=== PATIENT | male | born 1960 | race Caucasian/White ===

== ENCOUNTER → 2016-10-16 | Outpatient (CLI) | payer OTHER ==
--- NOTE | 2016-10-19 16:43 | MR ---
EXAM DATE: 10/16/16 PATIENT'S AGE: 56 Patient: OSCAR CALLE Facility: [facility] Site . Site : [id number] Study: MRI-Spine Cervical [id number]/2017 6:48:01 PM Ordering Physician: Jennifer Orozco Final Report: Indication: Headache. Neck pain. Comparison: None. Technique: Sagittal T1, T2, and STIR sequences. Axial T2/gradient sequences. Findings: Straightening of the normal cervical lordosis which may be due to a combination postoperative change in patient positioning. Otherwise, normal vertebral body facet alignment. No fractures. No vertebral body loss of height. No spondylosis is. No ligamentous injury. Normal marrow signal. Normal cord signal. No intradural mass or lesion. Postoperative changes of anterior discectomy and fusion C5 through C7. C2-3: No spinal canal or neural foraminal narrowing. C3-4: Posterior disk bulge or disk osteophyte complex. Mild narrowing of spinal canal. Uncovertebral facet joint hypertrophy results in mild narrowing of the bilateral neural foramina. C4-5: Advanced disc degeneration with loss of disc height. Posterior disc bulge or disk osteophyte complex. Effacement of the ventral thecal sac and flattening of the cord. Moderate narrowing of spinal canal. Moderate bilateral neural foraminal narrowing with possible impingement of the C5 nerve roots. C5-6: No spinal canal or neural foraminal narrowing. C6-7: No spinal canal or neural foraminal narrowing. C7-T1: Disc degeneration with posterior disc bulge or disk osteophyte complex. Mild narrowing of spinal canal. Uncovertebral facet joint hypertrophy results in mild narrowing of the bilateral neural foramina. No spinal canal or neural foraminal narrowing in the visualized upper thoracic spine. Impression: 1. Straightening of the normal cervical lordosis. Otherwise, normal alignment. No fractures. 2. Normal cord signal 3. Postoperative changes anterior discectomy and fusion C5-C7 4. At C4-5, advanced disk degeneration. Moderate narrowing of the spinal canal and bilateral neural foramina. Possible impingement of the C5 nerve roots 5. At C7-T1, mild narrowing of the spinal canal and bilateral neural foramina Dictated by Bi Reinoso MD @ Oct 19 2016 2:25PM Signed by: Bi Reinoso MD @10/19/2016 2:29:32 PM (Electronic Signature) Report Signed by Proxy and Original Signed Document filed in the Medical Record. MTDElizabeth
== END ==
LOC: MW.MRI 17:44
PROVIDERS: ATTEND Psychiatry & Neurology Neuromuscular Medicine
DX: R51 Headache (principal); M54.2 Cervicalgia; G89.29 Other chronic pain; M50.321 Other cervical disc degeneration at C4-C5 level; M48.03 Spinal stenosis, cervicothoracic region; Z98.1 Arthrodesis status
CPT/HCPCS: 72141; 72141-26

== ENCOUNTER 2017-02-25 13:08 | Observation (INO) | payer BC ==
--- NOTE | 2017-02-25 13:15 | EDM.PDOC ---
ED HPI GENERAL MEDICAL PROBLEM - General Stated Complaint: CHEST PAIN Time Seen by Provider: 02/25/17 13:14 - History of Present Illness INITIAL COMMENTS - FREE TEXT/NARRATIVE: HISTORY AND PHYSICAL: History of present illness: Patient's 56-year-old white male presents with concern of chest pain he describes as a tightness and some mild diaphoresis he's had no shortness of breath nausea vomiting or palpitations his last approximately 20 minutes and remains present on arrival to history of stroke or SC he does have history of hypercholesterolemia. Review of systems: As per history of present illness and below otherwise all systems reviewed and negative. Past medical history: As per history of present illness and as reviewed below otherwise noncontributory. Surgical history: As per history of present illness and as reviewed below otherwise noncontributory. Social history: No reported history of drug or alcohol abuse. Family history: As per history of present illness and as reviewed below otherwise noncontributory. Physical exam: HEENT: Atraumatic, normocephalic, pupils reactive, negative for conjunctival pallor or scleral icterus, mucous membranes moist, throat clear, neck supple, nontender, trachea midline. Lungs: Clear to auscultation, breath sounds equal bilaterally, chest nontender. Heart: S1S2, regular, negative for clicks, rubs, or JVD. Abdomen: Soft, nondistended, nontender. Negative for masses or hepatosplenomegaly. Negative for costovertebral tenderness. Pelvis: Stable nontender. Genitourinary: Deferred. Rectal: Deferred. Extremities: Atraumatic, negative for cords or calf pain. Neurovascular unremarkable. Neuro: Awake, alert, oriented. Cranial nerves II through XII unremarkable. Cerebellum unremarkable. Motor and sensory unremarkable throughout. Exam nonfocal. Diagnostics: CBC CMP troponin PT/INR chest x-ray EKG Therapeutics: IV O2 monitor nitroglycerin aspirin morphine when necessary Impression: #1 chest pain Definitive disposition and diagnosis as appropriate pending reevaluation and review of above. - Related Data Allergies Allergy/AdvReac Type Severity Reaction Status Date / Time No Known Allergies Allergy Verified 02/25/17 13:16 Home Meds: Home Meds . [No Known Home Meds] 02/25/17 [History] Social & Family History - Tobacco Use Years of Tobacco use: 30 Packs/Tins Daily: 1 Used Tobacco, but Quit: No Second Hand Smoke Exposure: Yes - Recreational Drug Use Recreational Drug Use: No ED ROS GENERAL - Review of Systems Review Of Systems: ROS reveals no pertinent complaints other than HPI. ED EXAM, GENERAL - Physical Exam Exam: See Below (See dictation) Course - Vital Signs Last Recorded V/S: Last Vital Signs Temp 36.5 C 02/25/17 13:11 Pulse 73 02/25/17 13:42 Resp 18 02/25/17 13:42 BP 132/88 02/25/17 13:42 Pulse Ox 94 L 02/25/17 13:42 - Orders/Labs/Meds Orders: Active Orders 24 hr Category Date Time Status Patient Status [ADT] Stat ADT 02/25/17 14:20 Ordered Cardiac Monitoring [RC] . DIRECTED Care 02/25/17 13:16 Active EKG Documentation Completion [RC] STAT Care 02/25/17 13:16 Active EKG Documentation Completion [RC] STAT Care 02/25/17 13:16 Active Oxygen Therapy, ED [RC] ASDIRECTED Care 02/25/17 13:16 Active Chest 1V Frontal [CR] Stat Exams 02/25/17 13:16 Taken Sodium Chloride 0.9% [Normal Saline] 1,000 ml Med 02/25/17 13:30 Active IV STAT Sodium Chloride 0.9% [Saline Flush] Med 02/25/17 13:16 Active 10 ml FLUSH ASDIRECTED PRN Sodium Chloride 0.9% [Saline Flush] Med 02/25/17 13:16 Active 2.5 ml FLUSH ASDIRECTED PRN Saline Lock Insert [OM.PC] Stat Oth 02/25/17 13:16 Ordered Medication Orders Sodium Chloride (Normal Saline) 1,000 mls @ 125 mls/hr IV STAT TITO Last Admin: 02/25/17 13:48 Dose: 125 mls/hr Sodium Chloride (Saline Flush) 10 ml FLUSH ASDIRECTED PRN PRN Reason: Keep Vein Open Last Admin: 02/25/17 13:56 Dose: 10 ml Sodium Chloride (Saline Flush) 2.5 ml FLUSH ASDIRECTED PRN PRN Reason: Keep Vein Open Last Admin: 02/25/17 13:57 Dose: 2.5 ml Labs: Laboratory Tests 02/25/17 02/25/17 02/25/17 Range/Units 13:23 13:23 13:23 WBC 4.87 (4.0-11.0) K/uL RBC 5.40 (4.50-5.90) M/uL Hgb 16.2 (13.0-17.0) g/dL Hct 46.8 (38.0-50.0) % MCV 86.7 (80.0-98.0) fL MCH 30.0 (27.0-32.0) pg MCHC 34.6 (31.0-37.0) g/dL RDW Std Deviation 40.7 (28.0-62.0) fl RDW Coeff of Eulalia 13 (11.0-15.0) % Plt Count 198 (150-400) K/uL MPV 10.50 (7.40-12.00) fL Neut % (Auto) 61.2 (48.0-80.0) % Lymph % (Auto) 26.3 (16.0-40.0) % [place] % (Auto) 10.9 (0.0-15.0) % Eos % (Auto) 1.2 (0.0-7.0) % Baso % (Auto) 0.4 (0.0-1.5) % Neut # (Auto) 3.0 (1.4-5.7) K/uL Lymph # (Auto) 1.3 (0.6-2.4) K/uL [place] # (Auto) 0.5 (0.0-0.8) K/uL Eos # (Auto) 0.1 (0.0-0.7) K/uL Baso # (Auto) 0.0 (0.0-0.1) K/uL Nucleated RBC % 0.0 /100WBC Nucleated RBCs # 0 K/uL INR 0.99 (0.86-1.11) D-Dimer, Quantitative (0.0-0.52) mg/LFEU Sodium 140 (136-146) mmol/L Potassium 4.0 (3.5-5.1) mmol/L Chloride 105 (98-110) mmol/L Carbon Dioxide 28 (21-31) mmol/L BUN 14 (6.0-23.0) mg/dL Creatinine 1.0 (0.6-1.5) mg/dL Est Cr Clr Drug Dosing 95.44 mL/min Estimated GFR (MDRD) > 60.0 ml/min Glucose 122 H (60-110) mg/dL Calcium 10.3 (8.8-10.8) mg/dL Total Bilirubin 0.4 (0.1-1.5) mg/dL AST 21 (5-40) IU/L ALT 47 (8-54) IU/L Alkaline Phosphatase 106 (40-150) Troponin I (0.0-0.29) NG/ML Total Protein 7.5 (6.0-8.0) g/dL Albumin 4.4 (3.5-5.0) g/dL Globulin 3.1 (2.0-3.5) g/dL Albumin/Globulin Ratio 1.4 (1.3-2.8) 02/25/17 02/25/17 Range/Units 13:23 13:29 WBC (4.0-11.0) K/uL RBC (4.50-5.90) M/uL Hgb (13.0-17.0) g/dL Hct (38.0-50.0) % MCV (80.0-98.0) fL MCH (27.0-32.0) pg MCHC (31.0-37.0) g/dL RDW Std Deviation (28.0-62.0) fl RDW Coeff of Eulalia (11.0-15.0) % Plt Count (150-400) K/uL MPV (7.40-12.00) fL Neut % (Auto) (48.0-80.0) % Lymph % (Auto) (16.0-40.0) % [place] % (Auto) (0.0-15.0) % Eos % (Auto) (0.0-7.0) % Baso % (Auto) (0.0-1.5) % Neut # (Auto) (1.4-5.7) K/uL Lymph # (Auto) (0.6-2.4) K/uL [place] # (Auto) (0.0-0.8) K/uL Eos # (Auto) (0.0-0.7) K/uL Baso # (Auto) (0.0-0.1) K/uL Nucleated RBC % /100WBC Nucleated RBCs # K/uL INR (0.86-1.11) D-Dimer, Quantitative 0.19 (0.0-0.52) mg/LFEU Sodium (136-146) mmol/L Potassium (3.5-5.1) mmol/L Chloride (98-110) mmol/L Carbon Dioxide (21-31) mmol/L BUN (6.0-23.0) mg/dL Creatinine (0.6-1.5) mg/dL Est Cr Clr Drug Dosing mL/min Estimated GFR (MDRD) ml/min Glucose (60-110) mg/dL Calcium (8.8-10.8) mg/dL Total Bilirubin (0.1-1.5) mg/dL AST (5-40) IU/L ALT (8-54) IU/L Alkaline Phosphatase (40-150) Troponin I < 0.10 (0.0-0.29) NG/ML Total Protein (6.0-8.0) g/dL Albumin (3.5-5.0) g/dL Globulin (2.0-3.5) g/dL Albumin/Globulin Ratio (1.3-2.8) Meds: Medications Generic Name Dose Route Start Last Admin Trade Name Freq PRN Reason Stop Dose Admin Sodium Chloride 1,000 mls @ 125 mls/hr 02/25/17 13:30 02/25/17 13:48 Normal Saline IV 125 mls/hr STAT TITO Administration Sodium Chloride 10 ml 02/25/17 13:16 02/25/17 13:56 Saline Flush FLUSH 10 ml ASDIRECTED PRN Administration Keep Vein Open Sodium Chloride 2.5 ml 02/25/17 13:16 02/25/17 13:57 Saline Flush FLUSH 2.5 ml ASDIRECTED PRN Administration Keep Vein Open Discontinued Medications Generic Name Dose Route Start Last Admin Trade Name Freq PRN Reason Stop Dose Admin Aspirin 324 mg 02/25/17 13:17 02/25/17 13:33 Aspirin PO 02/25/17 13:18 324 mg ONETIME ONE Administration Enoxaparin Sodium 100 mg 02/25/17 13:45 02/25/17 13:54 Lovenox SUBCUT 02/25/17 13:46 100 mg ONETIME ONE Administration Morphine Sulfate 2 mg 02/25/17 13:17 02/25/17 13:34 Morphine IVPUSH 02/25/17 13:18 2 mg ONETIME ONE Administration Nitroglycerin 0.4 mg 02/25/17 13:17 02/25/17 13:36 Nitrostat SL 02/25/17 13:28 0.4 mg Q5M PRN Administration Chest Pain Ondansetron HCl 4 mg 02/25/17 13:17 02/25/17 13:34 Zofran IVPUSH 02/25/17 13:18 4 mg ONETIME ONE Administration Departure - Departure Time of Disposition: 14:24 Disposition: Refer to Observation Condition: Good Clinical Impression: Chest pain - Discharge Information - My Orders Last 24 Hours: My Active Orders 02/25/17 13:16 Cardiac Monitoring [RC] . DIRECTED EKG Documentation Completion [RC] STAT EKG Documentation Completion [RC] STAT Oxygen Therapy, ED [RC] ASDIRECTED Chest 1V Frontal [CR] Stat Sodium Chloride 0.9% [Saline Flush] 10 ml FLUSH ASDIRECTED PRN Sodium Chloride 0.9% [Saline Flush] 2.5 ml FLUSH ASDIRECTED PRN Saline Lock Insert [OM.PC] Stat 02/25/17 13:30 Sodium Chloride 0.9% [Normal Saline] 1,000 ml IV STAT 02/25/17 14:20 Patient Status [ADT] Stat - Assessment/Plan Last 24 Hours: My Active Orders 02/25/17 13:16 Cardiac Monitoring [RC] . DIRECTED EKG Documentation Completion [RC] STAT EKG Documentation Completion [RC] STAT Oxygen Therapy, ED [RC] ASDIRECTED Chest 1V Frontal [CR] Stat Sodium Chloride 0.9% [Saline Flush] 10 ml FLUSH ASDIRECTED PRN Sodium Chloride 0.9% [Saline Flush] 2.5 ml FLUSH ASDIRECTED PRN Saline Lock Insert [OM.PC] Stat 02/25/17 13:30 Sodium Chloride 0.9% [Normal Saline] 1,000 ml IV STAT 02/25/17 14:20 Patient Status [ADT] Stat
[2017-02-25] MEDS ORDERED: Sodium Chloride 0.9% 10 ML Syringe FLUSH PRN (13:16)
[2017-02-25] MEDS ORDERED: Sodium Chloride 0.9% 2.5 ML Syringe FLUSH PRN (13:16)
[2017-02-25] MEDS ORDERED: Morphine 2 MG/ML Syringe IVPUSH ONE (13:17)
[2017-02-25] MEDS ORDERED: Aspirin 81 MG Tab.Chew PO ONE (13:17)
[2017-02-25] MEDS ORDERED: Ondansetron 4 MG/2 ML SDV IVPUSH ONE (13:17)
[2017-02-25] MEDS: Nitroglycerin 0.4 MG Tab.SL SL PRN ×3 (13:26→13:36)
[2017-02-25] MEDS ORDERED: Sodium Chloride 0.9% 1,000 ML IV SCH (13:30)
[2017-02-25] MEDS ORDERED: Enoxaparin 100 MG/1 ML Syringe SUBCUT ONE (13:45)
[2017-02-25 13:58] LABS: CHLORIDE,CL 105 mmol/L (98-110); SODIUM,NA 140 mmol/L (136-146)
[2017-02-25] MEDS ORDERED: Temazepam 15 MG Cap PO PRN (15:53)
[2017-02-25] MEDS ORDERED: Morphine 4 MG/ML Syringe IVPUSH PRN (15:53)
[2017-02-25] MEDS ORDERED: Acetaminophen 325 MG Tab PO PRN (15:53)
[2017-02-25] MEDS ORDERED: Bisacodyl 5 MG Tab PO PRN (15:53)
--- NOTE | 2017-02-25 16:01 | PCM.HP ---
H&P History of Present Illness - General Date of Service: 02/25/17 Admit Problem/Dx: Admission Diagnosis/Problem Admission Diagnosis/Problem Chest pain - History of Present Illness Initial Comments - Free Text/Narative: He presented to the ED with complaint of left sided chest pain that was somewhat pleuritic in nature. It lasted over 1-2 hours. He thinks that it was similar to pain that has been attributed to acid reflux in the past. His pain is now resolved. Left Chest Pain Score (Numeric/FACES): 5 - Related Data Allergies/Adverse Reactions: Allergies Allergy/AdvReac Type Severity Reaction Status Date / Time No Known Allergies Allergy Verified 02/25/17 13:16 Home Medications: Home Meds . [No Known Home Meds] 02/25/17 [History] Past Medical History Cardiovascular History: Reports: High Cholesterol. Denies: Afib, Aneurysm, Bypass, Heart Failure, Hypertension, AL, Pulmonary Hypertension, PVD Respiratory History: Denies: COPD Gastrointestinal History: Reports: GERD. Denies: Cirrhosis Genitourinary History: Denies: Acute Renal Failure, Chronic Renal Insuffiency Neurological History: Denies: CVA Endocrine/Metabolic History: Denies: Ponce's Disease, Diabetes, Type I, Diabetes, Type II Hematologic History: Denies: Anticoagulation Therapy, Bleeding Disorder Immunologic History: Denies: AIDS, HIV, Immunosuppression, Solid Organ Transplant - Infectious Disease History Infectious Disease History: Reports: Chicken Pox - Past Surgical History Musculoskeletal Surgical History: Reports: Other (See Below) Other Musculoskeletal Surgeries/Procedures:: right arm tendon rupture repair Social & Family History - Family History Family Medical History: Noncontributory - Tobacco Use Smoking Status *Q: Former Smoker Years of Tobacco use: 30 Packs/Tins Daily: 1 Used Tobacco, but Quit: Yes Month Tobacco Last Used: May 2016 Second Hand Smoke Exposure: No - Caffeine Use Caffeine Use: Reports: Coffee, Soda, Tea - Recreational Drug Use Recreational Drug Use: No H&P Review of Systems - Review of Systems: Review Of Systems: See Below General: Denies: Fever, Chills Pulmonary: Denies: Shortness of Breath, Wheezing, Cough, Sputum, Hemoptysis Cardiovascular: Reports: Chest Pain Gastrointestinal: Denies: Black Stool, Bloody Stool, Hematemesis, Hematochezia, Vomiting Genitourinary: Denies: Hematuria Exam - Exam Exam: See Below - Vital Signs Vital Signs: Last Vital Signs Temp 97.7 F 02/25/17 13:11 Pulse 59 L 02/25/17 14:37 Resp 18 02/25/17 14:37 BP 127/86 02/25/17 14:37 Pulse Ox 95 02/25/17 14:37 Weight: 105.6 kg - Exam General: Alert, Oriented HEENT: EOMI Neck: Supple, Trachea Midline Lungs: Clear to Auscultation, Normal Respiratory Effort Cardiovascular: Regular Rate, Regular Rhythm GI/Abdominal Exam: Normal Bowel Sounds, Soft, Non-Tender (Male) Exam: Deferred Rectal (Males) Exam: Deferred Extremities: No Pedal Edema Neurological: Cranial Nerves Intact, Normal Speech Neuro Extensive - Mental Status: Alert, Oriented x3 Neuro Extensive - Motor, Sensory, Reflexes: CN II-XII Intact. No: Facial palsy (L), Facial Palsy (R), Hemeplagia (R), Hemeplagia (L) Psychiatric: Alert, Normal Mood. No: Depressed, Agitated, Hallucinations - Patient Data Result Diagrams: 02/25/17 13:23 02/25/17 13:23 *Q Meaningful Use (ADM) - VTE *Q VTE Criteria *Q: - Stroke *Q Stroke Criteria *Q: - AMI *Q AMI Criteria *Q: - Problem List (1) Chest pain SNOMED Code(s): 49037908 ICD Code: R07.9 - CHEST PAIN, UNSPECIFIED Status: Acute Current Visit: Yes Problem List Initiated/Reviewed/Updated: Yes Orders Last 24hrs: Active Orders 24 hr Category Date Time Status Oxygen Therapy [RC] PRN Care 02/25/17 15:53 Active VTE/DVT Education [RC] PER UNIT ROUTINE Care 02/25/17 15:53 Active Vital Signs [RC] Q4H Care 02/25/17 15:53 Active Regular Diet [DIET] Diet 02/25/17 Dinner Active TROPONIN I [CHEM] Q6H Lab 02/25/17 21:00 Ordered TROPONIN I [CHEM] Q6H Lab 02/26/17 03:00 Ordered Acetaminophen [Tylenol] Med 02/25/17 15:53 Ordered 650 mg PO Q4H PRN Bisacodyl [Dulcolax] Med 02/25/17 15:53 Ordered 5 mg PO DAILY PRN Morphine Med 02/25/17 15:53 Ordered 4 mg IVPUSH Q2H PRN Pantoprazole [ProTONIX] Med 02/25/17 17:00 Ordered 40 mg PO BIDAC Temazepam [Restoril] Med 02/25/17 15:53 Ordered 15 mg PO BEDTIME PRN Resuscitation Status Routine Resus Stat 02/25/17 15:53 Ordered Medication Orders Sodium Chloride (Normal Saline) 1,000 mls @ 125 mls/hr IV STAT TITO Last Admin: 02/25/17 13:48 Dose: 125 mls/hr Sodium Chloride (Saline Flush) 10 ml FLUSH ASDIRECTED PRN PRN Reason: Keep Vein Open Last Admin: 02/25/17 13:56 Dose: 10 ml Sodium Chloride (Saline Flush) 2.5 ml FLUSH ASDIRECTED PRN PRN Reason: Keep Vein Open Last Admin: 02/25/17 13:57 Dose: 2.5 ml Assessment/Plan Comment:: EKG : sinus rhythm with first degree AVB and without changes suggestive of ischemia CXR : normal will observe; protonix; serial troponins. Carlos Steve MD
[2017-02-25] MEDS: Pantoprazole 40 MG Tab.CR PO SCH (17:15)
[2017-02-26] MEDS: Pantoprazole 40 MG Tab.CR PO SCH (06:51)
[2017-02-26 10:27] VITALS: BP 128/89
--- NOTE | 2017-02-26 15:46 | CR ---
EXAM DATE: 02/25/17 PATIENT'S AGE: 56 Patient: OSCAR CALLE Facility: [place], [place] Site . Site : 1960 Study: XRay Chest [id number]/20/2017 1:51:42 PM Ordering Physician: Brian Herrera Final Report: Technique: Portable AP chest. INDICATIONS: Pain and shortness of breath. Comparison: 01/22/2014. Findings: The lungs are clear. Normal heart size and pulmonary vascularity. No effusion. No pneumothorax. Impression: No acute chest findings. Dictated by Thee Downs MD @ Feb 25 2017 2:09PM (Electronic Signature) Report Signed by Proxy. NORTHWELL HEALTHElizabeth
--- NOTE | 2017-02-26 17:15 | PCM.DCSUM1 ---
Discharge Summary - Hospital Course HPI Initial Comments: Discharge Summary Date of admission: 02/25/2017 Date of discharge: 02/26/2017 Admitting diagnosis: #1. Acute chest pain rule out ACS #2. Possible gastroesophageal reflux disease #3. #4. #5. Discharge diagnoses: #1. Acute chest pain ACS ruled out most likely etiology gastroesophageal reflux disease #2. History of gastroesophageal reflux disease #3. #4. #5. Consultations: None Procedures: None Hospitalization course: Patient was admitted to observation secondary to acute chest pain. Patient's troponins were drawn 3. Troponins 3 were negative patient. Patient since admission did not have any further exacerbations of his chest pain. Patient's laboratory data was all within normal limits. H he did not have any nausea, vomiting, diarrhea, constipation, chest pain, shortness of breath, dyspnea, or any other systemic findings including fevers. Patient was stable and wanted to go home. Patient was told to follow-up with his primary care physician. Patient was also given a prescription for outpatient cardiac stress test to be done. Disposition on discharge: Home Condition on discharge: Stable, vital signs normal, no nausea, diarrhea, constipation, chest pain, shortness of breath nor any elevation of troponins. Discharge medications: Continuation of home medication, as well as a prescription for Pepcid as well as sublingual nitroglycerin. Follow-up instructions: Primary care physician as well as outpatient cardiac stress test - Discharge Data Discharge Date: 02/26/17 Discharge Disposition: Home, Self-Care 01 Condition: Stable - Discharge Diagnosis/Problem(s) (1) Chest pain SNOMED Code(s): 12702059 ICD Code: R07.9 - CHEST PAIN, UNSPECIFIED Status: Acute - Patient Instructions Diet: Heart Healthy Diet Activity: As Tolerated Driving: May Drive Today Showering/Bathing: May Shower Notify Provider of: Fever, Increased Pain, Swelling and Redness, Drainage, Nausea and/or Vomiting - Discharge Plan Prescriptions/Med Rec: Famotidine [Pepcid] 20 mg PO BID #60 tablet Nitroglycerin 0.4 mg SL 5XDAY PRN #60 tab.subl PRN Reason: Chest Pain Home Medications: Home Meds Famotidine [Pepcid] 20 mg PO BID #60 tablet 02/26/17 [Rx] Nitroglycerin 0.4 mg SL 5XDAY PRN #60 tab.subl 02/26/17 [Rx] Patient Handouts: Famotidine tablets or gelcaps, Chest Wall Pain, [id number] , Nitroglycerin sustained-release tablets or capsules - Discharge Summary/Plan Comment DC Time >30 min.: No - Patient Data Vitals - Most Recent: Last Vital Signs Temp 36.6 C 02/26/17 09:00 Pulse 60 02/26/17 09:00 Resp 12 02/26/17 09:00 BP 128/89 02/26/17 09:00 Pulse Ox 95 02/26/17 09:00 Weight - Most Recent: 105.6 kg I&O - Last 24 hours: Intake & Output 02/26/17 02/26/17 02/26/17 06:59 14:59 22:59 Intake Total 360 Output Total 1020 Balance -660 Lab Results - Last 24 hrs: Laboratory Results - last 24 hr 02/25/17 02/26/17 Range/Units 19:20 01:33 Troponin I < 0.10 < 0.10 (0.0-0.29) NG/ML Med Orders - Current: Current Medications Discontinued Medications Acetaminophen (Tylenol) 650 mg PO Q4H PRN PRN Reason: Pain (Mild 1-3)/fever Aspirin (Aspirin) 324 mg PO ONETIME ONE Stop: 02/25/17 13:18 Last Admin: 02/25/17 13:33 Dose: 324 mg Bisacodyl (Dulcolax) 5 mg PO DAILY PRN PRN Reason: Constipation Enoxaparin Sodium (Lovenox) 100 mg SUBCUT ONETIME ONE Stop: 02/25/17 13:46 Last Admin: 02/25/17 13:54 Dose: 100 mg Sodium Chloride (Normal Saline) 1,000 mls @ 125 mls/hr IV STAT TITO Last Admin: 02/25/17 13:48 Dose: 125 mls/hr Morphine Sulfate (Morphine) 2 mg IVPUSH ONETIME ONE Stop: 02/25/17 13:18 Last Admin: 02/25/17 13:34 Dose: 2 mg Morphine Sulfate (Morphine) 4 mg IVPUSH Q2H PRN PRN Reason: Pain (severe 7-10) Stop: 02/26/17 15:53 Nitroglycerin (Nitrostat) 0.4 mg SL Q5M PRN PRN Reason: Chest Pain Stop: 02/25/17 13:28 Last Admin: 02/25/17 13:36 Dose: 0.4 mg Ondansetron HCl (Zofran) 4 mg IVPUSH ONETIME ONE Stop: 02/25/17 13:18 Last Admin: 02/25/17 13:34 Dose: 4 mg Pantoprazole Sodium (Protonix) 40 mg PO BIDAC TITO Last Admin: 02/26/17 06:51 Dose: 40 mg Sodium Chloride (Saline Flush) 10 ml FLUSH ASDIRECTED PRN PRN Reason: Keep Vein Open Last Admin: 02/25/17 13:56 Dose: 10 ml Sodium Chloride (Saline Flush) 2.5 ml FLUSH ASDIRECTED PRN PRN Reason: Keep Vein Open Last Admin: 02/25/17 13:57 Dose: 2.5 ml Temazepam (Restoril) 15 mg PO BEDTIME PRN PRN Reason: Sleep *Q Meaningful Use (DIS) - VTE *Q VTE Criteria *Q: - Stroke *Q Stroke Criteria *Q: - AMI *Q AMI Criteria *Q:
== END 2017-02-26 12:00 | disposition home or self-care (01) ==
LOC: MW.ED 13:08 → MW.ICU 14:20
PROVIDERS: ADMIT Family Medicine; ATTEND Family Medicine
DX: R07.89 Other chest pain (principal); K21.9 Gastro-esophageal reflux disease without esophagitis; Z87.891 Personal history of nicotine dependence; Z98.890 Other specified postprocedural states
CPT/HCPCS: 36415; 71010; 80053; 84484; 85025; 85379; 85610; 93005; 96361; 96372; 96374; 96375; 99285; A9270; G0378; J1650; J2270; J2405; J7040; 99283